=== PATIENT | male | born 2000 | race Asian ===

== ENCOUNTER 2022-10-26 14:14 | Emergency (ER) | payer OTHER ==
[~2022-10-26] VITALS: Ht 182.9 cm; Wt 81.6 kg
[2022-10-26 14:20] VITALS: BP 114/75
[2022-10-26] MEDS ORDERED: IBUP-45 PO (14:23)
[2022-10-26] MEDS ORDERED: AMOX250C4 PO (15:21)
[2022-10-26] MEDS ORDERED: CETI10CA11 PO (15:22)
== END 2022-10-26 15:39 | disposition home or self-care (01) ==
LOC: EMS 14:18
DX: H65.93 Unspecified nonsuppurative otitis media, bilateral (principal); H72.93 Unspecified perforation of tympanic membrane, bilateral
CPT/HCPCS: 99283; Z7502